=== PATIENT | female | born 1950 | race Caucasian/White ===

== ENCOUNTER 2016-03-31 16:35 | Inpatient (IN) | payer MEDICAID, MEDICARE ==
[2016-03-31 17:26] LABS: AUTOMATED BASOPHIL 0.9 % (0-2); AUTOMATED LYMPH 29.5 % (17-44); AUTOMATED MONOCYTE 7.9 % (3-10); AUTOMATED NEUTROPHIL 58.7 % (45-76); MPV 7.8 fL (7.4-10.4)
[2016-03-31] MEDS ORDERED: METOPROLOL 5 MG/5 ML SDV IV ONE (18:41)
[2016-03-31] MEDS ORDERED: SODIUM CHLORIDE 0.9% 3 ML FLUSH FLUSH PRN (18:41)
[2016-03-31] MEDS ORDERED: NS 1,000 ML IV ONE ×2 (18:41)
[2016-03-31] MEDS ORDERED: ASPIRIN 325 MG TAB PO ONE (18:41)
--- NOTE | 2016-03-31 18:46 | EDPRACDOC ---
<Eze Aguilar - Last Filed: 03/31/16 19:30> - General Information Mode of Arrival: Car - History of Present Illness Onset: LAST PM HPI: PT STATES SHE STARTED HAVING CHEST DISCOMFORT ACHING AND TIGHTNESS THAT RADIATES INTO HER BACK DOWN HER LEFT ARM AND INTO HER JAW. PT STATES SHE HAS HAD MILD NAUSEA AT ONSET LAST NIGHT WITH FEW EPISODES OF FEELING CLAMMY AND MILD BELL WITH INCREASE IN PAIN AND SOB. PT STATES SHE TAKES LOW DOSE LISINOPRIL FOR HTN. NO CATH OR STRESS EVER. Chest Pain Location: Reports: Substernal Pain Radiation: Reports: Back, Jaw, Shoulder (L), Arm (L) Symptoms Occur: Reports: Suddenly, With light exertion Cardiac Risk Factors: Reports: Hypertension Cardiac History of: Reports: None PE Risk Factors: Reports: None Medications within 24 Hours: Reports: Aspirin (2 81MG LAST NIGHT) Prehospital Care: Reports: None Pain Came On: Reports: No Pain Pain Status: Present Now Pain Description: Reports: Aching, Tightness Pain Severity: Mild Pain Worsens With: Reports: Exertion Pain Improves With: Reports: Rest Associated Signs and Symptoms: Reports: SOB, Diaphoretic, Nausea <Ida Batres - Last Filed: 03/31/16 23:00> - General Information Chief Complaint: Chest Pain Stated Complaint: CP HEAVINESS & INTO BACK Time Seen by Provider: 03/31/16 18:40 Home Medications: Home Medications Ascorbic Acid [Vitamin C] 1,000 mg PO DAILY 03/31/16 Calcium Carbonate/Vitamin D3 [Calcium 500 + Vit D Caplet] 1 tab PO DAILY Cholecalciferol (Vitamin D3) [Vitamin D3] 2,000 unit PO DAILY 03/31/16 Ibuprofen [Ibuprofen Ib] 200 mg PO BID PRN 03/31/16 Lisinopril [Zestril] 2.5 mg PO DAILY 03/31/16 Multivit-Min/FA/Lycopene/Lut [Centrum Silver Tablet] 1 tab PO DAILY 03/31/16 [place]-3 Fatty Acids/Fish Oil [Fish Oil 1,000 mg Capsule] 1 cap PO DAILY Vitamin E 1,000 unit PO DAILY 03/31/16 Allergies/Adverse Reactions: Allergies Allergy/AdvReac Type Severity Reaction Status Date / Time codeine Allergy Nausea/Vomi Verified 03/31/16 19:34 ting ED Past Medical History - History Reviewed Yes Nurses notes reviewed and agree except as marked Travel Outside of [place] in the Last 3 Months?: No - Patient Medical History Cardiac History: Reports: Hypertension Systemic History: Denies: Cancer Surgical History: Reports: Tonsillectomy/Adnoidectomy - Social Medical History ETOH: None Substance Abuse: None Lives With: Spouse Lives In: Home <Ida Batres - Last Filed: 03/31/16 23:00> EDM Review of Systems - Review of Systems ROS Negative Except as Marked: Yes All systems reviewed and were negative except as marked Constitutional: No Symptoms Reported. negative: Fever, Chills, Weakness, Fatigue, Loss of Appetite Eyes: No Symptoms Reported. negative: Redness, Blurred Vision, Double Vision, Discharge, Pain, Light Sensitive, Photophobia Ears: No Symptoms Reported. negative: Pain, Hearing Loss, Drainage, Ear Pulling Throat: No Symptoms Reported. negative: Pain, Swelling Nose: No Symptoms Reported. negative: Congestion, Bleeding, Discharge, Injection, Swelling, Deformity, Ecchymosis, Tender, Abrasion, Laceration Mouth: No Symptoms Reported. negative: Pain, Drooling Respiratory: Shortness of Breath (MILD WITH EXERTION). negative: Barky Cough, Brassy Cough, Cough, Hemoptysis, Wheezing Cardiovascular: Chest Pain. negative: Cyanosis, Edema, Orthopnea, Palpitations , PND, Syncope, Skin Mottling Gastrointestinal: No Symptoms Reported. negative: Pain, Constipation, Nausea, Vomiting, Diarrhea, Melena, Formula Intolerance Genitourinary: No Symptoms Reported. negative: Dysuria, Hematuria, Frequency, Discharge, Bleeding, Testicular Pain, Neurological: No Symptoms Reported. negative: Headache, Dizziness, Seizure, Numbness, Weakness, Speech Difficulty, Gait Difficulty Musculoskeletal: No Symptoms Reported. negative: Neck, Chestwall, Ribs, Back, Shoulder, Arm, Elbow, Forearm, Wrist, Hand, Pelvis, Hip, Femur, Knee, Leg, Ankle , Foot Integumentary: No Symptoms Reported. negative: Itching, Rash, Bruising, Wound Allergic/Immunologic: No Symptoms Reported. negative: Hives, Itching Hematologic: No Symptoms Reported. negative: Lymphadenopathy, Easy Bruising, Easy Bleeding Endocrine: No Symptoms Reported. negative: Weight Gain, Weight Loss Psychiatric: No Symptoms Reported. negative: Anxiety, Depression, Hallucinations, Insomnia, Suicidal <Ida Batres - Last Filed: 03/31/16 23:00> - Physical Exam Last recorded Vital Signs: Last Vital Signs Temp 97.6 F 03/31/16 16:54 Pulse 88 03/31/16 19:26 Resp 17 03/31/16 19:26 BP 166/109 H 03/31/16 19:26 Pulse Ox 97 03/31/16 19:26 Oxygen Pulse Oxygen Saturation 97 O2 Device Room Air Oxygen Flow Rate Fraction of Inspired Oxygen ( FIO2) <Eze Aguilar - Last Filed: 03/31/16 19:30> - Physical Exam Constitutional: Alert (Awake), No apparent distress Oriented to: Time, Person, Place Last recorded Vital Signs: Last Vital Signs Temp 97.6 F 03/31/16 16:54 Pulse 88 03/31/16 16:54 Resp 18 03/31/16 16:54 BP 186/88 H 03/31/16 16:54 Pulse Ox 98 03/31/16 16:54 Oxygen Pulse Oxygen Saturation 98 O2 Device Oxygen Flow Rate Fraction of Inspired Oxygen ( FIO2) - HEENT Head: Normal ( normocephalic) Eye Exam: Normal (PERRL, EOMI, Sclera white) Oropharynx: Normal (Pharynx:Moist without exudate,Gums-no swelling) Tympanic Membrane: Normal ENT EAC: Normal TMJ: Normal Nose: No Symptoms Reported (septum midline) Neck: Normal (FROM, trachea at midline) - Respiratory/Cardiovascular Respiratory: Normal - CTA (BBS clear to auscultation without adventitious sounds ) Cardiovascular: Normal (RRR without murmur, gallop or rub) - GI Auscultation: Normal (NABS) Palpation: Normal (Soft,No rebound or guarding, non distended) Tenderness: Non tender Boykin's Sign: Negative - Bladder: Normal - Musculoskeletal Back: Normal (Non-Tender) Extremities: Normal (Normal tone, Pulses 2+ No cyanosis or edema, FROM) - Integumentary Skin: Normal, Warm, Dry Lymphatics: Normal (no adenopathy) - Neurologic Memory Impaired: Normal Motor Function: Normal (Normal tone, Pulses 2+ No cyanosis or edema, FROM) Cranial Nerve: Normal (CN II-X11 intact sensation, strength 5/5) Cerebellar: Normal Mood Description: Normal Perception: Normal <Ida Batres - Last Filed: 03/31/16 23:00> ED Chest Pain Exam - Respiratory/Cardiovascular Respiratory: Normal - CTA Cardiovascular/Chest: Normal Radial Pulse: Normal Femoral Pulse: Normal Pedal Pulse: Normal Carotid Arteries: Normal Chest Palpation: Normal <Ida Batres - Last Filed: 03/31/16 23:00> ED Procedures - Additional Procedures Progress Note: RIGHT EXTERNAL JUGULAR IV ACCESS PLACED WITH 18GA TWINCATH. BOTH LINES ON TWINCATH FLUSH WITHOUT PROBLEMS. MINIMAL SWELLING INITIALLY AFTER PUNCTURE, NO SWELLING AFTER FLUSH WITH 20CC NS. PT TOLERATED WELL. <Ida Batres - Last Filed: 03/31/16 23:00> - Results 03/31/16 17:16 03/31/16 17:16 WBC 9.3 xk/uL (3.8-10.8) 03/31/16 17:16 RBC 4.84 xM/uL (4.20-5.40) 03/31/16 17:16 Hgb 14.8 g/dL (12.0-16.0) 03/31/16 17:16 Hct 44.0 % (36-47) 03/31/16 17:16 MCV 91 fL (81-99) 03/31/16 17:16 MCH 30.5 pg (27-32) 03/31/16 17:16 MCHC 33.5 g/dl (33-36) 03/31/16 17:16 RDW 13.3 % (11.5-14.5) 03/31/16 17:16 Plt Count 290 xk/uL (130-400) 03/31/16 17:16 MPV 7.8 fL (7.4-10.4) 03/31/16 17:16 Neut % (Auto) 58.7 % (45-76) 03/31/16 17:16 Lymph % (Auto) 29.5 % (17-44) 03/31/16 17:16 [place] % (Auto) 7.9 % (3-10) 03/31/16 17:16 Eos % (Auto) 3.0 % (0-5) 03/31/16 17:16 Baso % (Auto) 0.9 % (0-2) 03/31/16 17:16 Absolute Neuts (auto) 5.39 xk/uL (1.7-8.2) 03/31/16 17:16 Absolute Lymphs (auto) 2.70 xk/uL (0.65-4.75) 03/31/16 17:16 Sodium 144 mEq/L (137-146) 03/31/16 17:16 Potassium 4.8 mEq/L (3.5-5.1) 03/31/16 17:16 Chloride 110 mEq/L (98-107) H 03/31/16 17:16 Carbon Dioxide 16 mMOL/L (22-33) L 03/31/16 17:16 Anion Gap 23 mEq/L (8-16) H 03/31/16 17:16 BUN 19 MG/DL (7-17) H 03/31/16 17:16 Creatinine 0.80 MG/DL (0.52-1.04) 03/31/16 17:16 Estimated GFR (MDRD) > 60 mL/min (>=60) 03/31/16 17:16 Glucose 137 MG/DL (70-99) H 03/31/16 17:16 Calculated Osmolality 281 MOs/Kg (270-290) 03/31/16 17:16 Calcium 9.6 MG/DL (8.4-10.2) 03/31/16 17:16 Total Bilirubin 0.6 MG/DL (0.2-1.3) 03/31/16 17:16 AST 61 IU/L (14-36) H 03/31/16 17:16 ALT 31 IU/L (9-52) 03/31/16 17:16 Alkaline Phosphatase 116 IU/L (55-165) 03/31/16 17:16 Troponin I 2.05 ng/mL (<.04) H* 03/31/16 17:16 Uwf-S-Cmjpnuaumps Pept 1460 pg/mL (0-900) H 03/31/16 17:16 Total Protein 8.0 G/DL (6.3-8.2) 03/31/16 17:16 Albumin 4.3 G/DL (3.5-5.0) 03/31/16 17:16 Lab Results 03/31/16 03/31/16 17:16 17:16 WBC 9.3 RBC 4.84 Hgb 14.8 Hct 44.0 MCV 91 MCH 30.5 MCHC 33.5 RDW 13.3 Plt Count 290 MPV 7.8 Neut % (Auto) 58.7 Lymph % (Auto) 29.5 [place] % (Auto) 7.9 Eos % (Auto) 3.0 Baso % (Auto) 0.9 Absolute Neuts (auto) 5.39 Absolute Lymphs (auto) 2.70 Sodium 144 Potassium 4.8 Chloride 110 H Carbon Dioxide 16 L Anion Gap 23 H BUN 19 H Creatinine 0.80 Estimated GFR (MDRD) > 60 Glucose 137 H Calculated Osmolality 281 Calcium 9.6 Total Bilirubin 0.6 AST 61 H ALT 31 Alkaline Phosphatase 116 Troponin I 2.05 H* Lhf-P-Cduhlqjwdvp Pept 1460 H Total Protein 8.0 Albumin 4.3 Laboratory Results - last 24 hr 03/31/16 03/31/16 17:16 17:16 WBC 9.3 RBC 4.84 Hgb 14.8 Hct 44.0 MCV 91 MCH 30.5 MCHC 33.5 RDW 13.3 Plt Count 290 MPV 7.8 Neut % (Auto) 58.7 Lymph % (Auto) 29.5 [place] % (Auto) 7.9 Eos % (Auto) 3.0 Baso % (Auto) 0.9 Absolute Neuts (auto) 5.39 Absolute Lymphs (auto) 2.70 Sodium 144 Potassium 4.8 Chloride 110 H Carbon Dioxide 16 L Anion Gap 23 H BUN 19 H Creatinine 0.80 Estimated GFR (MDRD) > 60 Glucose 137 H Calculated Osmolality 281 Calcium 9.6 Total Bilirubin 0.6 AST 61 H ALT 31 Alkaline Phosphatase 116 Troponin I 2.05 H* Ljl-F-Yjwtgcynave Pept 1460 H Total Protein 8.0 Albumin 4.3 Laboratory Results 03/31/16 17:16 03/31/16 17:16 <Eze Aguilar - Last Filed: 03/31/16 19:30> - Differential Diagnosis Angina, Esophageal reflux/spasm, Gastritis, Myocardial infarction, Pneumonia - Action Patient received Aspirin within last 24 hours?: Yes ASA given in the ED: Yes Patient received Beta Susan within last 24hrs: No - Results All Results Reviewed and Normal except as Highlighted below: Yes 03/31/16 17:16 03/31/16 17:16 WBC 9.3 xk/uL (3.8-10.8) 03/31/16 17:16 RBC 4.84 xM/uL (4.20-5.40) 03/31/16 17:16 Hgb 14.8 g/dL (12.0-16.0) 03/31/16 17:16 Hct 44.0 % (36-47) 03/31/16 17:16 MCV 91 fL (81-99) 03/31/16 17:16 MCH 30.5 pg (27-32) 03/31/16 17:16 MCHC 33.5 g/dl (33-36) 03/31/16 17:16 RDW 13.3 % (11.5-14.5) 03/31/16 17:16 Plt Count 290 xk/uL (130-400) 03/31/16 17:16 MPV 7.8 fL (7.4-10.4) 03/31/16 17:16 Neut % (Auto) 58.7 % (45-76) 03/31/16 17:16 Lymph % (Auto) 29.5 % (17-44) 03/31/16 17:16 [place] % (Auto) 7.9 % (3-10) 03/31/16 17:16 Eos % (Auto) 3.0 % (0-5) 03/31/16 17:16 Baso % (Auto) 0.9 % (0-2) 03/31/16 17:16 Absolute Neuts (auto) 5.39 xk/uL (1.7-8.2) 03/31/16 17:16 Absolute Lymphs (auto) 2.70 xk/uL (0.65-4.75) 03/31/16 17:16 Lab Results 03/31/16 17:16 WBC 9.3 RBC 4.84 Hgb 14.8 Hct 44.0 MCV 91 MCH 30.5 MCHC 33.5 RDW 13.3 Plt Count 290 MPV 7.8 Neut % (Auto) 58.7 Lymph % (Auto) 29.5 [place] % (Auto) 7.9 Eos % (Auto) 3.0 Baso % (Auto) 0.9 Absolute Neuts (auto) 5.39 Absolute Lymphs (auto) 2.70 Laboratory Results - last 24 hr 03/31/16 17:16 WBC 9.3 RBC 4.84 Hgb 14.8 Hct 44.0 MCV 91 MCH 30.5 MCHC 33.5 RDW 13.3 Plt Count 290 MPV 7.8 Neut % (Auto) 58.7 Lymph % (Auto) 29.5 [place] % (Auto) 7.9 Eos % (Auto) 3.0 Baso % (Auto) 0.9 Absolute Neuts (auto) 5.39 Absolute Lymphs (auto) 2.70 Laboratory Results 03/31/16 17:16 - EKG EKG #1 EKG Time: 16:56 -: Yes EKG interpreted by me Rate: bpm: 78 [place]: Normal Rhythm: NSR Block: None Hypertrophy: None ST: Normal EKG #2 EKG Time: 19:22 -: Yes EKG interpreted by me Rate: bpm: 85 [place]: Normal Rhythm: NSR Block: None Hypertrophy: None ST: Normal Comments: POSSIBLE INFERIOR SUBENDOCARDIAL INJURY <Ida Batres - Last Filed: 03/31/16 23:00> - Departure Yes I personally saw and evaluated the patient. Disposition: Admit IP To This Hospital Decision to Admit Time: 19:30 Decision to admit date: 03/31/16 Decision to admit: from ED - Physician Consulted Hospitalist Time Called: 19:30 Provider Called: Ridge Sp[facility] Returned Call: 19:30 <Eze Aguilar - Last Filed: 03/31/16 19:30> - Departure Education/Counseling Given To: Patient, Family Member Education/Counseling Given Regarding: Diagnosis, Treatment, Prognosis, Follow Up <Ida Batres - Last Filed: 03/31/16 23:00> - Departure Condition: Fair Final Diagnosis: NSTEMI (non-ST elevated myocardial infarction)
[2016-03-31 18:56] LABS: BLOOD UREA NITROGEN 19 MG/DL (7-17); CALCIUM 9.6 MG/DL (8.4-10.2); CALCULATED OSMOLALITY 281 MOs/Kg (270-290); CHLORIDE 110 mEq/L (98-107); GLUCOSE 137 MG/DL (70-99); SODIUM LEVEL 144 mEq/L (137-146)
[2016-03-31] MEDS ORDERED: Enoxaparin 1 mg per kg per dose SQ ONE (19:29)
[2016-03-31] MEDS ORDERED: ENOXAPARIN 80 MG/0.8 ML PFS SQ ONE (19:30)
[2016-03-31 19:32] LABS: LEUKOCYTES/URINE TRACE (NEGATIVE); NITRITE/URINE NEG (NEGATIVE); RBC/URINE 0-2 (0-5); URINE OCCULT BLOOD NEG (NEG/TRACE); WBC/URINE 0-2 (0-5)
[2016-03-31 19:55] LABS: PARTIAL THROMB. TIME 25.7 SEC (22-35)
[2016-03-31] MEDS: NITROGLYCERINE 0.4 MG TAB SL PRN ×2 (19:59→22:08)
[2016-03-31] MEDS: MORPHINE 4 MG/ML INJECTION IV ONE ×2 (20:01→22:57)
[2016-03-31] MEDS ORDERED: Nitroglycerin D5W 50,000 MCG/250 ML IVBOT IV SCH (20:08)
[2016-03-31] MEDS ORDERED: ATORVASTATIN 80 MG TAB PO ONE (20:08)
[2016-03-31] MEDS ORDERED: LISINOPRIL 5 MG TAB PO ONE (20:09)
[2016-03-31] MEDS ORDERED: Nitroglycerin D5W 50,000 MCG/250 ML IVBOT IV ONE (20:12)
--- NOTE | 2016-03-31 20:26 | HISTPHYS ---
- Chief Complaint CHEST PAIN - History of Present Illness PRIMARY CARE PROVIDER: Dr. Vivas in [place], [place] HPI: The patient is a 65 yo woman with minimal medical problems including only hypertension, who presents with chest pain. Onset: Yesterday evening minimal pain but then more severe between 2-4 am today and now. Duration: intermittent. Location: substernal. Radiation: Left shoulder, Left jaw, back Character: Up to 10/10. Pressure. Alleviated by: Nothing. Exacerbated by: Nothing. Associated Symptoms: Shortness of breath. Hot and clammy last night with diaphoresis. No cough, wheezing. 2 weeks ago had a respiratory illness but took Z pack and it resolved. No palpitations. No fever or chills. Patient told me she had no abdominal symptoms, but apparently she had told an emergency department staff member that she had some nausea and abdominal pain for 3 days. At this time she reports she has no abdominal symptoms. Treatments: none at home except usual medications. PMH: Hypertension: usu took lisinopril but lately has decreased it. No hyperlipidemia, diabetes. SOCIAL: Former smoker, quit 30 yrs ago. FAM: Father: of [place]. Possibly in his 60s. No other heart disease in family. - Medical History Cardiac History: Reports: Hypertension Systemic History: Denies: Cancer - Surgical History Reports: Tonsillectomy/Adnoidectomy - Medictions/Allergies Allergies codeine Allergy (Verified 03/31/16 19:34) Nausea/Vomiting Current Medication List: Reviewed Home Medications Ascorbic Acid [Vitamin C] 1,000 mg PO DAILY 03/31/16 Calcium Carbonate/Vitamin D3 [Calcium 500 + Vit D Caplet] 1 tab PO DAILY Cholecalciferol (Vitamin D3) [Vitamin D3] 2,000 unit PO DAILY 03/31/16 Ibuprofen [Ibuprofen Ib] 200 mg PO BID PRN 03/31/16 Lisinopril [Zestril] 2.5 mg PO DAILY 03/31/16 Multivit-Min/FA/Lycopene/Lut [Centrum Silver Tablet] 1 tab PO DAILY 03/31/16 [place]-3 Fatty Acids/Fish Oil [Fish Oil 1,000 mg Capsule] 1 cap PO DAILY Vitamin E 1,000 unit PO DAILY 03/31/16 - Family History Reports: Cardiac Disorders (Father: of [place]. Possibly in his 60s.), Other ( No other significant family history reported.) - Social History Travel Outside of US in the Last 3 Months?: No Smoking Status: Former smoker (Quit over 30 years ago.) Social History: Denies: Alcohol Use, Substance Use Disorder - Review of Systems GENERAL: No Fever, chills. Has diaphoresis. Positive for fatigue/malaise. HEENT: No ear pain or discharge. No nasal discharge or bleeding. No throat pain or swelling. No eye pain or eye redness. RESPIRATORY: No cough, wheezing. Has shortness of breath. CARDIOVASCULAR: Chest pain. No palpitations. GI: No abdominal pain, nausea, vomiting, diarrhea, constipation, or bloody stool. NEUROLOGICAL: No headache or focal weakness. INTEGUMENT: no rashes, itching, or lesions. LYMPHATIC SYSTEM: no lymph node swelling or pain. MUSCULOSKELETAL: no pain or joint swelling. GENITOURINARY: No dysuria or hematuria. ENDOCRINE: No polyuria or polydipsia. HEME: No chronic anemia, bleeding, or easy bruising. - Physical Exam Vital Signs: Initial Vitals Temperature 97.6 F 03/31/16 16:54 Pulse Rate 88 03/31/16 16:54 Respiratory Rate 18 03/31/16 16:54 Blood Pressure 186/88 H 03/31/16 16:54 Pulse Oxygen Saturation 98 03/31/16 16:54 Vital Signs - 24 hr 03/31/16 03/31/16 03/31/16 16:54 19:21 19:26 Temperature 97.6 F Pulse Rate 88 88 88 Respiratory 18 24 17 Rate Blood Pressure 186/88 H 166/109 H 166/109 H Pulse Oxygen 98 97 97 Saturation 03/31/16 03/31/16 19:56 20:07 Temperature Pulse Rate 75 81 Respiratory 16 18 Rate Blood Pressure 173/77 147/87 Pulse Oxygen 97 93 Saturation Weight: 71.7 kg Height: 5 feet BMI: 30.9 - Other Exam Other Exam Findings: GENERAL: Ill-appearing, well nourished, in acute distress. HEENT: Normocephalic, atraumatic; pupils equal and round. Nares patent, without discharge or bleeding. No oropharyngeal lesions or erythema. Mucous membranes are dry. NECK: is supple, no masses, trachea midline. RESPIRATORY: Clear to auscultation bilaterally. Chest wall movements are symmetric. No use of accessory muscles to breathe. No wheezing, rales, rhonchi. Intermittent tachypnea. CARDIOVASCULAR: Normal S1, S2. Minimal 2/6 systolic murmur. No rubs, or gallops. PMI non-displaced. Carotids: no carotid bruits. No bradycardia or tachycardia. DP pulses 2+ bilaterally. Had episodes in which she cried out in pain and placed her hand on her chest; this was accompanied by some tachypnea. GI: soft, nontender, non-distended, normal active bowel sounds. No hepatosplenomegaly. INTEGUMENT: Clean, diaphoretic, and intact. No rashes. No lesions. MUSCULOSKELETAL: Moving all extremities. No cyanosis. No clubbing. Edema: none bilaterally. NEUROLOGICAL: Cranial nerves 2-12 grossly intact. Motor 5/5 throughout. Reflexes : 2+ bilaterally. Babinski: toes downgoing bilaterally. Intact Finger to nose. Sensory grossly intact to light touch. Intact rapid alternating movements bilaterally. No pronator drift. PSYCHIATRIC: Fully oriented. Normal and appropriate affect. LYMPHATIC: No cervical lymphadenopathy. No supraclavicular lymphadenopathy. - Lab Results Laboratory Results - last 24 hr 03/31/16 03/31/16 03/31/16 17:16 17:16 18:55 WBC 9.3 RBC 4.84 Hgb 14.8 Hct 44.0 MCV 91 MCH 30.5 MCHC 33.5 RDW 13.3 Plt Count 290 MPV 7.8 Neut % (Auto) 58.7 Lymph % (Auto) 29.5 [place] % (Auto) 7.9 Eos % (Auto) 3.0 Baso % (Auto) 0.9 Absolute Neuts (auto) 5.39 Absolute Lymphs (auto) 2.70 PT INR APTT D-Dimer Quant (PE/DVT) Sodium 144 Potassium 4.8 Chloride 110 H Carbon Dioxide 16 L Anion Gap 23 H BUN 19 H Creatinine 0.80 Estimated GFR (MDRD) > 60 Glucose 137 H Calculated Osmolality 281 Calcium 9.6 Total Bilirubin 0.6 AST 61 H ALT 31 Alkaline Phosphatase 116 Troponin I 2.05 H* Ktm-M-Tpebgwtwtqh Pept 1460 H Total Protein 8.0 Albumin 4.3 Urine Color Yellow Urine Clarity Clear Urine pH 6.0 Ur Specific [place] 1.010 Urine Protein Neg Urine Glucose (UA) Neg Urine Ketones Neg Urine Occult Blood Neg Urine Nitrite Neg Urine Bilirubin Neg Urine Urobilinogen <2.0 Ur Leukocyte Esterase Trace H Urine RBC 0-2 Urine WBC 0-2 Ur Epithelial Cells Occ Urine Bacteria 1+ H Urine Mucus Occ 03/31/16 03/31/16 03/31/16 19:28 19:34 19:34 WBC RBC Hgb Hct MCV MCH MCHC RDW Plt Count MPV Neut % (Auto) Lymph % (Auto) [place] % (Auto) Eos % (Auto) Baso % (Auto) Absolute Neuts (auto) Absolute Lymphs (auto) PT 10.6 INR 1.0 APTT 25.7 D-Dimer Quant (PE/DVT) 507 H Sodium Potassium Chloride Carbon Dioxide Anion Gap BUN Creatinine Estimated GFR (MDRD) Glucose Calculated Osmolality Calcium Total Bilirubin AST ALT Alkaline Phosphatase Troponin I 2.09 H* Eed-L-Mfhhphedgiv Pept Total Protein Albumin Urine Color Urine Clarity Urine pH Ur Specific [place] Urine Protein Urine Glucose (UA) Urine Ketones Urine Occult Blood Urine Nitrite Urine Bilirubin Urine Urobilinogen Ur Leukocyte Esterase Urine RBC Urine WBC Ur Epithelial Cells Urine Bacteria Urine Mucus - Diagnostic Findings EKG #1: 78 beats per minute normal sinus rhythm. Slight hint ST-depression in leads V5 and V6. Reviewed EKG personally. EKG #2: 85 beats per minute. Normal sinus rhythm. Marked ST abnormality, possible inferior subendocardial injury. ST depressions in leads 2, 3, AVF, V3 , V4, and minimally in V5. Reviewed EKG personally. EKG #3: 80 beats per minute. Normal sinus rhythm. Nonspecific ST and T-wave abnormality. Minimal ST depression in leads 2 and AVF, decreased from previous EKG. Minimal ST depression in leads V4 V5 and V6. ST depression in 3 and V3 that was present in previous EKG is now resolved. Chest x-ray, pending. CT abdomen and pelvis, viewed personally: EXAM: CT ABDOMEN AND PELVIS WITH CONTRAST TECHNIQUE: Multidetector CT imaging of the abdomen and pelvis was performed using the standard protocol following bolus administration of intravenous contrast. CONTRAST: 100 cc Isovue 370. COMPARISON: Right upper quadrant ultrasound 05/02/2008. FINDINGS: The lung bases are clear. No pleural or pericardial effusion. Mild appearing fatty infiltration of the liver is noted. There is no focal liver lesion. The gallbladder, biliary tree, adrenal glands, spleen, pancreas and right kidney are unremarkable. A 1.1 cm left renal cyst is noted. The patient is status post hysterectomy. Sigmoid diverticulosis without diverticulitis is identified. The appendix is not visualized and may have been removed. The stomach and small bowel appear normal. There is no lymphadenopathy or fluid. The urinary bladder is distended but otherwise unremarkable. No lytic or sclerotic bony lesion is seen. IMPRESSION: No acute finding or finding to explain the patient's symptoms. Mild appearing fatty infiltration of the liver. Diverticulosis without diverticulitis. UPDATE: Chest x-ray, viewed personally: EXAM: PORTABLE CHEST 1 VIEW COMPARISON: None. FINDINGS: The heart size and mediastinal contours are within normal limits. Both lungs are clear. No pneumothorax or pleural effusion is noted. The visualized skeletal structures are unremarkable. IMPRESSION: No acute cardiopulmonary abnormality seen. - Assessment (1) NSTEMI (non-ST elevated myocardial infarction) I21.4 - NON-ST ELEVATION (NSTEMI) MYOCARDIAL INFARCTION Acute Present on Admission: Yes Patient's clinical picture is most consistent with acute cardiac ischemia. Her troponin is positive. Her risk factors include hypertension and family history of myocardial infarction. Plan: Obtain cardiac enzymes x 3. Place patient on telemetry. Give patient oxygen, aspirin. Give nitroglycerin, and morphine as needed for chest pain. Give statin: atorvastatin. Ordered carvedilol and lisinopril. Lovenox 1 mg/kg q 12 hours. UPDATE: She has continued to have chest pain despite treatment, so IV nitroglycerin gtt has been added. Blow Molder, Dr. Yoder, has been consulted. (2) Hypertensive urgency I16.0 - HYPERTENSIVE URGENCY Acute Present on Admission: Yes Plan: Beta you. NOLVIA inhibitor. Nitro. Update: IV Nitro gtt will also treat her blood pressure. (3) Elevated brain natriuretic peptide (BNP) level R79.89 - OTHER SPECIFIED ABNORMAL FINDINGS OF BLOOD CHEMISTRY Acute Present on Admission: Yes No physicial findings to suggest acute CHF and no history of CHF. Plan: Monitor for fluid overload. (4) Dehydration E86.0 - DEHYDRATION Acute Present on Admission: Yes Plan: IVF - Plan Appreciate clinical evaluator's consult. Case Care Discussed with: Patient, Consultants (Blow Molder, Dr. Yoder), Family, Nursing Staff
[2016-03-31] MEDS ORDERED: GUAIFEN 100 MG-DEXTROMETH 10 MG PER 5 ML PO PRN (21:16)
[2016-03-31] MEDS ORDERED: TEMAZEPAM 15 MG CAP PO PRN (21:16)
[2016-03-31] MEDS ORDERED: PROMETHAZINE 25 MG/ML VIAL IV PRN (21:16)
[2016-03-31] MEDS ORDERED: SENNA CONCENTRATE TAB PO PRN (21:16)
[2016-03-31] MEDS ORDERED: Aluminum;Magnesium;Simethicone 30 ML UDC PO PRN (21:16)
[2016-03-31] MEDS ORDERED: BISACODYL 5 MG TAB PO PRN (21:16)
[2016-03-31] MEDS ORDERED: BENZONATATE 100 MG PERLES PO PRN (21:16)
[2016-03-31] MEDS ORDERED: ACETAMINOPHEN 325 MG/TAB TABLET PO PRN (21:16)
[2016-03-31] MEDS ORDERED: SIMETHICONE 80 MG TAB PO PRN (21:16)
[2016-03-31] MEDS ORDERED: ACETAMINOPHEN 325 MG SUPP PR PRN (21:16)
[2016-03-31] MEDS ORDERED: Docusate Sodium 100 MG CAP PO PRN (21:16)
[2016-03-31] MEDS ORDERED: ONDANSETRON HCL 4 MG/2 ML VIAL IV PRN (21:16)
[2016-03-31] MEDS ORDERED: Enoxaparin 1 mg per kg per dose SQ SCH (22:00)
[2016-03-31] MEDS ORDERED: Pharmacy Order Set Alert SCH (22:00)
[2016-03-31] MEDS: CARVEDILOL 6.25 MG TAB PO SCH (22:03)
--- NOTE | 2016-03-31 22:13 | DIRPT ---
CLINICAL DATA: Acute chest pain. EXAM: PORTABLE CHEST 1 VIEW COMPARISON: None. FINDINGS: The heart size and mediastinal contours are within normal limits. Both lungs are clear. No pneumothorax or pleural effusion is noted. The visualized skeletal structures are unremarkable. IMPRESSION: No acute cardiopulmonary abnormality seen. Electronically Signed By: Vidal Puentes Jr, M.D. On: 03/31/2016 22:10
--- NOTE | 2016-03-31 22:15 | PCM.CARDCO ---
Consultation Date: 03/31/16 Requesting Physician: Ridge Spivey (NSTEMI) Consulting Doctor: Yovani Yoder Travel Outside of [place] in the Last 3 Months?: No Consultation Note: History of Present Illness: The pt is a 65 yo WF with a hx of HBP, recently started on lisinopril, followed by Dr. Vivas in [place]. She has no prior cardiac hx. Was well until started feeling poorly yesterday with vague oppressive chest discomfort and malaise. Today, had more prominent central chest pressure discomfort, cant ' get comfortable, radiates to back, shoulders, left arm, and "my teeth hurt". Sx prompted eval in ER, continuing pain discomfort here 06/27, despite repeated sl NTG; relieved transiently following morphine. Some breathlessness, no orthopnea, PND. No palpitations. Some nausea, no vomiting. No prior exertional chest discomfort or dyspnea Risks: HBP only. Chol checked, no rxx required. No DM. Nonsmoker. ?FH of heart disease in father in advanced ag Past Medical History: HBP, recently started therapy Allergies codeine Allergy (Verified 03/31/16 19:34) Nausea/Vomiting Home Medications Ascorbic Acid [Vitamin C] 1,000 mg PO DAILY 03/31/16 Calcium Carbonate/Vitamin D3 [Calcium 500 + Vit D Caplet] 1 tab PO DAILY Cholecalciferol (Vitamin D3) [Vitamin D3] 2,000 unit PO DAILY 03/31/16 Ibuprofen [Ibuprofen Ib] 200 mg PO BID PRN 03/31/16 Lisinopril [Zestril] 2.5 mg PO DAILY 03/31/16 Multivit-Min/FA/Lycopene/Lut [Centrum Silver Tablet] 1 tab PO DAILY 03/31/16 [place]-3 Fatty Acids/Fish Oil [Fish Oil 1,000 mg Capsule] 1 cap PO DAILY Vitamin E 1,000 unit PO DAILY 03/31/16 Family History: + heart disease in father Social History: Traveled outside the [place] in the last 3 months? No Former smoker Review of Systems: Nothing in addition, no TIA/CVA sx, melena, hematochezia or claudication Physical Examination: Temperature: 97.6 F (03/31/16 16:54)HR: 71 (03/31/16 22:08)RR: 18 (03/31/16 22: 08)BP: 164/101 (03/31/16 22:08) SAT:97 (03/31/16 22:08) [] Physical Exam GEN: mildly overweight, age appropriate, in some subjective distress VS BP 146/80 now VS: as above HEENT: no JVD, carotids normal CHEST: clear COR: RR, normal s1, s2, no s3. No murmur or gallop or rub ABD: soft, no mass or megaly EXTREM: normal contour, PT 2+ bilat, no edema SKIN: warm, no diaphorsis NEURO: alert, no focal motor deficit LAB/DI: [] Laboratory Tests 03/31/16 03/31/16 03/31/16 17:16 17:16 19:28 WBC 9.3 Hgb 14.8 Hct 44.0 Plt Count 290 INR D-Dimer Quant (PE/DVT) Sodium 144 Potassium 4.8 Chloride 110 H Carbon Dioxide 16 L BUN 19 H Creatinine 0.80 Estimated GFR (MDRD) > 60 AST 61 H ALT 31 Troponin I 2.05 H* 2.09 H* Scz-T-Ylirnulvjtt Pept 1460 H 03/31/16 03/31/16 19:34 19:34 WBC Hgb Hct Plt Count INR 1.0 D-Dimer Quant (PE/DVT) 507 H Sodium Potassium Chloride Carbon Dioxide BUN Creatinine Estimated GFR (MDRD) AST ALT Troponin I Xdm-I-Qbxflaccjqk Pept EKGs: NSR, very subtle ST depression inferolateral leads. CXR: normal heart /mediastinal contour, no infiltrate or CHF IMPRESSION: acute NSTEMI, HBP - Recommendations REC: iv or topical nitrate; lovenox dose metoprolol protocol NPO p MN Pt accepts advice for transfer to [facility] in AM for cath/poss PCI. Risks: AK/arrest/CVA 03/999, vessel damage bleed 2% Understands and accepts
[2016-03-31] MEDS ORDERED: MORPHINE 4 MG/ML INJECTION ONE (22:24)
[2016-03-31] MEDS ORDERED: NITROGLYCERINE 2 % OINTMENT PACK ONE (22:26)
[2016-03-31] MEDS ORDERED: NITROGLYCERINE 2 % OINTMENT PACK TOP ONE (22:29)
[2016-03-31] MEDS ORDERED: MORPHINE 2 MG/ML INJECTION IV ONE ×2 (22:30→22:44)
[2016-03-31] MEDS: METOPROLOL 5 MG/5 ML SDV IV SCH ×2 (23:26→23:44)
[2016-04-01 00:07] LABS: CPKMB RELATIVE INDEX 8.2 (0.0-2.2)
[2016-04-01 00:32] VITALS: BMI 30.3
[2016-04-01] MEDS ORDERED: Vaccine Screening Complete SCH (02:00)
[2016-04-01] MEDS: MORPHINE 2 MG/ML INJECTION IV PRN ×2 (05:55→09:05)
[2016-04-01] MEDS ORDERED: NITROGLYCERINE 2 % OINTMENT PACK TOP SCH (06:00)
[2016-04-01] MEDS ORDERED: SODIUM CHLORIDE 0.9% 3 ML FLUSH FLUSH SCH (06:00)
[2016-04-01 07:43] VITALS: TEMP 97.6
[2016-04-01 07:56] LABS: LDL (calc.) 127.6 MG/DL (<100); VLDL (calc.) 23.4 MG/DL (5-40)
[2016-04-01] MEDS ORDERED: ASPIRIN 325 MG TAB PO SCH (08:00)
[2016-04-01] MEDS ORDERED: ENOXAPARIN 80 MG/0.8 ML PFS SQ SCH (08:00)
[2016-04-01 08:11] LABS: CPKMB 25.2 ng/mL (0-4.5); CPKMB RELATIVE INDEX 8.8 (0.0-2.2)
[2016-04-01 08:48] VITALS: BP 108/52
[2016-04-01] MEDS ORDERED: [UNRECOGNIZED DRUG - OTHER] PO SCH (09:00)
[2016-04-01] MEDS ORDERED: Non-Formulary Medication ITEM (Cholecalciferol (Vitamin D3) [Vitamin D3] 2,000 UNIT) PO SCH (09:00)
[2016-04-01] MEDS: CARVEDILOL 6.25 MG TAB PO SCH (09:00)
[2016-04-01] MEDS ORDERED: LISINOPRIL 5 MG TAB PO SCH (09:00)
[2016-04-01 09:16] VITALS: PULSE 64
[2016-04-01] MEDS ORDERED: MORPHINE 2 MG/ML INJECTION IV ONE (09:40)
--- NOTE | 2016-04-01 09:45 | PCM.DCS92 ---
- Final/Secondary Discharge Diagnosis (1) NSTEMI (non-ST elevated myocardial infarction) Acute I21.4 - NON-ST ELEVATION (NSTEMI) MYOCARDIAL INFARCTION Present on Admission: Yes Comment: Continue medical therapy in the form of nitroglycerin infusion, Lovenox , aspirin beta-you. For cardiac catheterization this morning (2) HTN (hypertension) Chronic I10 - ESSENTIAL (PRIMARY) HYPERTENSION Present on Admission: Yes essential hypertension I10 - Essential (primary) hypertension Plan/Goal/Comment: Continue medical therapy keep SBP below 140 (3) Dyslipidemia Chronic E78.5 - HYPERLIPIDEMIA, UNSPECIFIED Present on Admission: Yes Plan/Goal/Comment: Continue high-dose statin therapy (4) GERD (gastroesophageal reflux disease) Chronic K21.9 - GASTRO-ESOPHAGEAL REFLUX DISEASE WITHOUT ESOPHAGITIS Present on Admission: Yes without esophagitis K21.9 - Gastro-esophageal reflux disease without esophagitis Plan/Goal/Comment: continue ppi. Discharge Disposition: Trans. to Other Hospital Discharge Condition: Serious Cognitive Discharge Status: Unimpaired Fuctional Discharge Status: Independent O2 Device: Nasal Cannula Oxygen to be used after Discharge: Continuous Diet at Discharge: Cardiac Activity: Limited Call Office For: Worsening Symptoms Discontinue use of:: Alcohol, All Illegal Substances, All Types of Tobacco - DC Summary Notes Hospital Course Note:: Discharge summary on patient named JESUS WASHINGTON admitted to [facility] on 03/31/16 by Ridge Spivey MD. Date of discharge is . Patient has initially presented to emergency room on March 31 for evaluation of sudden onset of substernal chest discomfort in the form of pressure and heaviness radiating to left shoulder jaw all back and left upper extremity. Patient reported dyspnea diaphoresis and feel nauseated hot and clammy. She reported the pressure was very intense about 10/10. Please refer the admission for further details. ED workup was undertaken her her 1st troponin was 2.0. Maximum medical therapy was instituted and patient was seen consultation by bag machine adjuster. Patient was admitted to telemetry floor, her troponin has peaked at 2.9. Throughout the hospitalization patient had recurrent episodes of fairly intense chest discomfort of the same caracteristics and required up titration of nitro drip and morphine doses. During hospital stay patient has remained hemodynamically stable. On April 01 around 10 o'clock in the morning patient has been transferred to [facility] for cardiac cath. Total Time: 45 min . Code: 49477 (<30 min.) - Physical Exam Vital Signs: Last Vital Signs Temp 97.6 F 04/01/16 07:40 Pulse 64 04/01/16 09:14 Resp 18 04/01/16 08:47 BP 108/52 L 04/01/16 08:47 Pulse Ox 98 04/01/16 08:00 Oxygen Pulse Oxygen Saturation 98 O2 Device Nasal Cannula Oxygen Flow Rate 2 Fraction of Inspired Oxygen ( 2 FIO2) Constitutional: No apparent distress, Alert (Awake), Distress, Restless Oriented to: Time, Person, Place - HEENT Head: Normal ( normocephalic) Eye: Normal (PERRL, EOMI, Sclera white) Oropharynx: Normal (Pharynx:Moist without exudate,Gums-no swelling) Tympanic Membrane: Normal ENT EAC: Normal TMJ: Normal Nose: No Symptoms Reported (septum midline) - Respiratory/Cardiovascular Respiratory: Normal - CTA Cardiovascular: Normal - GI Auscultation: Normal (NABS) Palpation: Normal (Soft,No rebound or guarding, non distended) Tenderness: Non tender Boykin's Sign: Negative Rectal Exam: Deferred - Exam Deferred: Yes - Musculoskeletal Back: Normal (Non-Tender) Extremities: Normal (Normal tone, Pulses 2+ No cyanosis or edema, FROM) - Integumentary Skin: Normal, Warm, Dry Lymphatics: Normal (no adenopathy) - Neurologic Memory Impaired: Normal Motor Function: Normal Cranial Nerve: Normal Cerebellar: Normal Mood Description: Normal, Appropriate Perception: Normal - Other Exam Other Exam Findings: Allergies codeine Allergy (Verified 03/31/16 19:34) Nausea/Vomiting 03/31/16 17:16 03/31/16 17:16 Abnormal Lab Results 03/31/16 03/31/16 03/31/16 17:16 18:55 19:28 D-Dimer Quant (PE/DVT) Chloride 110 H Carbon Dioxide 16 L Anion Gap 23 H BUN 19 H Glucose 137 H AST 61 H Creatine Kinase CK-MB (CK-2) CK-MB (CK-2) Rel Index Troponin I 2.05 H* 2.09 H* Upg-U-Oxcqkubmmqk Pept 1460 H LDL Cholesterol, Calc Ur Leukocyte Esterase Trace H Urine Bacteria 1+ H 03/31/16 03/31/16 03/31/16 19:34 22:53 23:05 D-Dimer Quant (PE/DVT) 507 H Chloride Carbon Dioxide Anion Gap BUN Glucose AST Creatine Kinase 293 H CK-MB (CK-2) 24.0 H CK-MB (CK-2) Rel Index 8.2 H Troponin I 2.67 H* D See-G-Wyrkpbpqyug Pept LDL Cholesterol, Calc Ur Leukocyte Esterase Urine Bacteria 04/01/16 04/01/16 07:01 07:01 D-Dimer Quant (PE/DVT) Chloride Carbon Dioxide Anion Gap BUN Glucose AST Creatine Kinase 286 H CK-MB (CK-2) 25.2 H CK-MB (CK-2) Rel Index 8.8 H Troponin I 2.96 H* Msw-Y-Vspqcmquzfb Pept LDL Cholesterol, Calc 127.6 H Ur Leukocyte Esterase Urine Bacteria Last Vital Signs Temp 97.6 F 04/01/16 07:40 Pulse 64 04/01/16 09:14 Resp 18 04/01/16 08:47 BP 108/52 L 04/01/16 08:47 Pulse Ox 98 04/01/16 08:00
--- NOTE | 2016-04-01 10:19 | PCM.CARD ---
- Subjective Current Assessment: Chest Pain (Patient is on nitroglycerin drip and continues to have anginal pain. She has received morphine sulfate.) Vital Signs: Last Vital Signs Temp 97.6 F 04/01/16 10:00 Pulse 64 04/01/16 10:04 Resp 18 04/01/16 10:00 BP 108/52 L 04/01/16 10:00 Pulse Ox 98 04/01/16 08:00 EKG Rhythm: Sinus Rhythm Heart Sounds: S1 & S2 (Cardiac auscultation unchanged lungs bilateral air entry no pedal edema) - Assessment/Plan (1) NSTEMI (non-ST elevated myocardial infarction) Acute I21.4 - NON-ST ELEVATION (NSTEMI) MYOCARDIAL INFARCTION Present on Admission: Yes Comment/Plan: I discussed coronary angiography and left heart catheterization with the patient at extensive length again. Procedure, benefits and potential risks were explained and she vocalized understanding and is agreeable. Her condition was discussed at length by my partner with me. He at evaluated her last night and plan for the coronary angiography and I concur. (2) Dyslipidemia Chronic E78.5 - HYPERLIPIDEMIA, UNSPECIFIED Present on Admission: Yes Comment/Plan: Diet was discussed statin therapy was also discussed she understood and questions were answered (3) HTN (hypertension) Chronic I10 - ESSENTIAL (PRIMARY) HYPERTENSION Present on Admission: Yes essential hypertension I10 - Essential (primary) hypertension Comment/Plan: Blood pressure is stable and we will monitor this clinically. She is now ready to be transferred to [facility] for coronary angiography.
[2016-04-01] MEDS ORDERED: OMEGA-3-ACID ETHYL ESTERS 1000 MG CAP PO SCH (12:00)
[2016-04-01] MEDS ORDERED: CHOLECALCIFEROL 1000 UNITS TAB PO SCH (12:00)
[2016-04-01] MEDS ORDERED: VITAMINS, MULTIPLE CAP PO SCH (12:00)
--- NOTE | 2016-04-01 17:27 | CAPUEKG ---
[place], [place] Test Date: 2016-04-01 Pat Name: JESUS WASHINGTON Department: Room: 451 Gender: Female Computer Science Professor: TP : Requested By: Order Number: Reading MD: Raimundo Skelton MD Measurements Intervals [place] Rate: 66 P: 44 PA: 140 QRS: 11 QRSD: 82 T: 132 QT: 458 QTc: 480 Interpretive Statements Normal sinus rhythm ST \T\ T wave abnormality, consider lateral ischemia Prolonged QT Abnormal ECG Electronically Signed On 04-01-16 17:27:24 EST by Raimundo Skelton MD <[id number]> [id number]
--- NOTE | 2016-04-01 17:28 | CAPUEKG ---
[place], [place] Test Date: 2016-04-01 Pat Name: JESUS WASHINGTON Department: Room: 451 Gender: Female Telephone Surveyor: JADYN : Requested By: Order Number: Reading MD: Raimundo Skelton MD Measurements Intervals [place] Rate: 57 P: 45 DE: 138 QRS: 24 QRSD: 74 T: 128 QT: 484 QTc: 471 Interpretive Statements Sinus bradycardia ST \T\ T wave abnormality, consider lateral ischemia Prolonged QT Abnormal ECG Electronically Signed On 04-01-16 17:27:42 EST by Raimundo Skelton MD <[email or web address]> [id number]
[2016-04-01] MEDS ORDERED: ATORVASTATIN 80 MG TAB PO SCH (21:00)
== END 2016-04-01 09:55 | disposition short-term general hospital (02) | DRG 282 ==
LOC: ED 16:35 → EDINP 20:00 → PCU 23:55
PROVIDERS: ADMIT Internal Medicine; ATTEND Internal Medicine
DX: I21.4 Non-ST elevation (NSTEMI) myocardial infarction (principal); I10 Essential (primary) hypertension; E78.5 Hyperlipidemia, unspecified; K21.9 Gastro-esophageal reflux disease without esophagitis; Z88.5 Allergy status to narcotic agent; Z79.899 Other long term (current) drug therapy; Z87.891 Personal history of nicotine dependence; I16.0 Hypertensive urgency
CPT/HCPCS: 36415; 71010; 80053; 80061; 81001; 82550; 82553; 83880; 84484; 85025; 85379; 85610; 85730; 93005; 96361; 96372; 96374; 96375; 99284; J1650; J2270; J3490